=== PATIENT | female | born 2000 | race Caucasian/White ===

== ENCOUNTER 2019-02-09 19:05 | Emergency (ER) | payer OTHER, MEDICAID, SELFPAY ==
[2019-02-09 19:29] VITALS: BP 119/74; PULSE 77; RESP 14; TEMP 36.4; O2SAT 100
--- NOTE | 2019-02-09 22:13 | DI.US.S_ITS ---
PROCEDURE: US PELVIC COMPLETE INDICATIONS: RIGHT ADNEXAL PAIN TECHNIQUE: Real-time scanning was performed of the pelvic organs, with image documentation. Additional endovaginal scanning was necessary due to incomplete visualization of the adnexal and endometrial structures by transabdominal scanning. COMPARISON: [facility], , PELVIC COMPLETE, 02/03/2017, 22:06. FINDINGS: Transabdominal scanning: Limited scanning through the kidneys shows no hydronephrosis. No pathologic free abdominal or pelvic fluid. Endovaginal scanning: Uterus: Uterus is normal in size at 6.9 x 4.2 x 5.8 cm. The endometrium measures 12.4 mm in combined thickness. Ovaries: Ovaries are normal in size 4.0 x 2.7 years on the right and 2.8 x 2.1 x 2.5 cm on the left. Multiple bilateral follicular cyst, largest on the right measuring 2.6 cm. IMPRESSION: Dominant right follicular cyst measuring 2.6 cm. Dictated by: Jesus DOZIER Interpreted: Constantino Christensen MD on 02/10/2019 at 8:21 Approved by: Constantino Christensen M.D. on 02/10/2019 at 10:34
--- NOTE | 2019-02-09 22:13 | ED_ITS ---
HPI - Abdominal Pain General Chief Complaint: Abdominal Pain Stated Complaint: OVARIE PAIN Time Seen by Provider: 02/09/19 22:07 Source: patient Mode of arrival: ambulatory Limitations: no limitations History of Present Illness HPI narrative: Patient is a 18-year-old female here with her boyfriend for concerns of abdominal pain and concerns of . Patient states she has had abdominal pain for the past several weeks. Her boyfriend states that the patient has been constipated in the past. However did have a bowel movement today. Patient denies any urinary symptoms or vaginal bleeding. Has not tried anything for symptoms prior to arrival. Related Data Previous Rx's Medication Instructions Recorded bupropion HCl [Wellbutrin SR] 100 mg PO BID #60 tab 03/13/17 Allergies Allergy/AdvReac Type Severity Reaction Status Date / Time shellfish derived Allergy Unknown EYES Verified 02/09/19 19:32 [SHELLFISH DERIVED] SWELL, FACE ITCHES Review of Systems Constitutional Denies fever(s) and Denies headache(s) ENT Ears, Nose, Mouth, and Throat: Denies headache(s) Cardiovascular Denies chest pain and Denies dyspnea Respiratory Denies dyspnea Gastrointestinal Gastrointestinal: Reports abdominal pain, Reports constipation, Denies nausea and Denies vomiting Genitourinary Denies dysuria and Denies vaginal discharge Musculoskeletal Denies myalgias and Denies arthralgias Integumentary/Breasts Denies rash Neurologic Denies headache(s) FOR[facility]LY [facility] Medical History Healthy adult (Acute) Surgical History History of third molar tooth extraction Family History Brother Age: 23 Mental health problem Mother Age: 42 Broken foot ADHD (attention deficit hyperactivity disorder) Social History Smoking Status: Never smoker Family History Brother Age: 23 Mental health problem Mother Age: 42 Broken foot ADHD (attention deficit hyperactivity disorder) Social History Smoking Status: Never smoker Exam Initial Vital Signs Initial Vital Signs: Vital Signs Temperature 97.6 F 02/09/19 19:29 Pulse Rate 77 02/09/19 19:29 Respiratory Rate 14 02/09/19 19:29 Blood Pressure 119/74 02/09/19 19:29 Pulse Oximetry 100 02/09/19 19:29 Const General: cooperative, healthy appearing, comfortable, well developed, well groomed and No acute distress Orientation: alert, awake and oriented x3 HENMT Head: normal to inspection and normocephalic Resp Effort & Inspection: normal respiratory effort Auscultation: clear to auscultation bilaterally Cardio Rate: regular rate Rhythm: regular rhythm GI Inspection: non-distended Palpation: soft, No firm and No tender Skin Lesions: no lesions Rashes: no rashes Neuro General: alert, awake and oriented x3 Speech: speech normal Extrem General: normal to inspection and capillary refill normal Course Orders Ordered: ED Orders 02/09/19 22:13 US pelvic complete Stat Vital Signs - 8 hr 02/09/19 19:29 02/10/19 00:21 Temperature 97.6 F Pulse Rate 77 65 Respiratory Rate 14 14 Blood Pressure 119/74 127/76 Pulse Oximetry 100 98 MDM - Abdominal Pain Lab Data Attestation: I reviewed the patient's lab results. Point of care testing: Point of Care Testing Test Results Negative Urine Dip Bedside Urine Glucose Negative Bedside Urine Bilirubin - Negative Bedside Urine Ketone - Negative Urine Specific [place] 1.025 Bedside Urine Occult Blood - Negative Bedside Urine pH 6.5 Bedside Urine Protein - Negative Bedside Urine Urobilinogen - Negative Bedside Urine Nitrite - Negative Bedside Urine Leukocytes - Negative Esterase MDM Narrative Medical decision making narrative: test negative however the patient expressed some concern about the validity of this stating that when her mother was with her brother the urine test rate never positive and they needed a blood test patient has a benign abdominal exam. I do suspect that this secondary to the constipation. Will hold on CT scan for now. I discussed all this with the patient and her boyfriend. We did discuss increasing her fiber intake. Discussed return precautions. They expressed understanding and agreement with plan. Discharge Plan Departure Patient Disposition: Home Clinical Impression: Cyst of right ovary Discharge Date/Time: 02/10/19 00:21 Interventions: ED Discharge Assessment Last Done: 02/10/19 00:21 Instructions: DI for Ovarian Cyst Activity Restrictions/Additional Instructions: Recommend that you take Tylenol/ibuprofen for any discomfort. Contact your primary provider or superintendent geophysical laboratory provider to discuss the indications for control to control the cysts. Return to the emergency department for any new or worsening symptoms Prescriptions: No Action bupropion HCl [Wellbutrin SR] 100 MG tablet extended release 12 hr 100 mg PO BID Qty: 60 RF: 0 Referrals: Alicia Gee ND [Primary Care Provider] -
[2019-02-10 00:21] VITALS: BP 127/76; PULSE 65; RESP 14; O2SAT 98
== END 2019-02-10 00:21 | disposition home or self-care (01) ==
PROVIDERS: Emergency Provider Emergency Medicine; Family Provider Family Medicine; PCP Naturopath
DX: N83.201 Unspecified ovarian cyst, right side (principal)
CPT/HCPCS: 76830; 76856; 81003; 81025; 99282; 99283

== ENCOUNTER → 2019-07-02 18:27 | Outpatient (CLI) | payer OTHER, MEDICAID, SELFPAY ==
[2019-07-02 21:36] LABS: Urine N gonorrhoeae NOT DETECTED
[2019-07-02 22:42] LABS: Urine Chlamydia NOT DETECTED
== END ==
PROVIDERS: Family Provider Family Medicine; PCP Naturopath; Visit Provider Physician Assistant
DX: R10.30 Lower abdominal pain, unspecified (principal)
CPT/HCPCS: 87210; 87491; 87591

== ENCOUNTER 2019-10-25 17:18 | Emergency (ER) | payer OTHER, MEDICAID, SELFPAY ==
[2019-10-25 17:25] VITALS: BP 112/77; PULSE 116; RESP 20; TEMP 37.3; O2SAT 97; BMI 21.2
[2019-10-25 18:05] LABS: Influenza A - CEPHEID Flu A NEGATIVE (NEGATIVE); Influenza B - CEPHEID Flu B POSITIVE (NEGATIVE)
--- NOTE | 2019-10-25 18:44 | ED.URI ---
HPI - URI/Sore Throat General Chief Complaint: Upper Respiratory Symptoms Stated Complaint: weak feeling/diarrhea/ rt breast pain Time Seen by Provider: 10/25/19 18:44 Source: patient Mode of arrival: Ambulatory Limitations: no limitations History of Present Illness HPI Narrative: [age] year old female comes to the emergency department with fevers starting last . Patient states that she has had just feeling weak. Not really much nasal congestion or cough. She denies any chest pain other than a little bit discomfort in her right breast and a little bit of a duct that feels full. She states she is still breast-feeding her 2-year-old and states that she has not had any changes with milk or blood but has appreciated that it is painful when she uses the nipple and expresses milk. She has felt slightly nauseated. She has had loose stools. She has not had any urinary symptoms. She has not had any rashes or skin changes. Patient states she has not appreciated any redness or skin changes to the breast. She states she has had mastitis in the past and this feels different. She denies any other medical issues currently. No prior surgeries. No allergies. Related Data Home Medications Medication Instructions Recorded Confirmed escitalopram oxalate 5 mg tablet 5 mg PO DAILY 07/02/19 07/02/19 propranolol 20 mg tablet 10 mg PO ONCE PRN tab 07/02/19 07/02/19 Previous Rx's Medication Instructions Recorded bupropion HCl [Wellbutrin SR] 100 mg PO BID #60 tab 03/13/17 ondansetron HCl [Zofran] 4 mg PO Q6H PRN #7 tab 10/25/19 Allergies Allergy/AdvReac Type Severity Reaction Status Date / Time shellfish derived Allergy Unknown EYES Verified 07/02/19 16:53 [SHELLFISH DERIVED] SWELL, FACE ITCHES Review of Systems Review of Systems ROS Unobtainable: All systems reviewed & are unremarkable except as noted in HPI and below Patient History Medical History Healthy adult (Acute) Surgical History History of third molar tooth extraction Family History (Updated 02/24/17 @ 00:00 by Conversion Provider) Brother Age: 24 Mental health problem Mother Age: 43 Broken foot ADHD (attention deficit hyperactivity disorder) Social History Smoking Status: Never smoker Smoking Status: Never smoker alcohol intake frequency: 0-2 drinks per day Substance Use Type: marijuana Exam Narrative Exam Narrative: GEN: well nourished, well appearing male, alert and oriented x 3, patient appears to be in mild distress. HEENT: Atraumatic, pupils are equal round reactive to light, extraocular movements are intact, nares are clear, TMs are clear with no fluid, there is no conjunctival pallor. Throat is clear without any exudates, erythema, tonsillar enlargement or uvular deviation HEART: Regular rate and rhythm without murmur, clicks, rubs. Patient's right breast has a small nodule that feels consistent with plugged duct and is mildly tender, no fluctuance, no redness. LUNGS:Lungs clear to auscultation, no wheezes, rales, crackles, chest moves symmetrically ABD:bowel sounds normal, soft, non-tender, no guarding, rebound, rigidity, no masses noted, no hepatosplenomegaly :No CVA tenderness. MSCL: Non-tender, no muscle atrophy, muscles strength 5/5 upper and lower extremities, full range of motion, normal gait NEURO:CN 2-12 intact, sensation normal. SKIN: No rash, no erythema or skin changes. Initial Vital Signs Initial Vital Signs: Vital Signs Temperature 99.2 F 10/25/19 17:25 Pulse Rate 116 H 10/25/19 17:25 Respiratory Rate 20 10/25/19 17:25 Blood Pressure 112/77 10/25/19 17:25 Pulse Oximetry 97 10/25/19 17:25 Course Orders Ordered: ED Orders 10/25/19 17:28 Flu test [Influenza A & B (PCR)] Stat Vital Signs Vital signs: Vital Signs - 8 hr 10/25/19 17:25 Temperature 99.2 F Pulse Rate 116 H Respiratory Rate 20 Blood Pressure 112/77 Pulse Oximetry 97 MDM - URI/Sore Throat Lab Data Attestation: I reviewed the patient's lab results. Labs: Lab Results 10/25/19 Range/Units 17:28 Influenza A (RT-PCR) Flu a negative (NEGATIVE) Influenza B (RT-PCR) Flu b positive H (NEGATIVE) MDM Narrative Medical decision making narrative: Discussed with patient she is flu positive, patient may also have a plugged duct, does not appear that she has a mastitis. We discussed treatment for the plug stuck inside symptoms to watch for for potential mastitis. She has had the past and states this does feel different. She is far outside the window for Tamiflu. Patient I discussed symptomatic care and reasons to return emergently. Discharge Plan Departure Patient Disposition: Home Clinical Impression: Influenza B Discharge Date/Time: 10/25/19 19:15 Instructions: Influenza Activity Restrictions/Additional Instructions: Follow up with your primary care physician in the next 3-5 days. Continue ibuprofen and/or Tylenol as needed for pain You may have a plugged duct, use heat to the affected area, massage, continue to breast feed regularly. May take Zofran 1 tablet every 6 hours as needed for nausea/vomiting. You may also take Imodium as needed for diarrhea. Return to the ER for new redness, increasing pain of your breast, persistent vomiting, new chest pain, shortness of breath, black or bloody stools, passing out, or other new or concerning symptoms. Prescriptions: New ondansetron HCl [Zofran] 4 mg tablet 4 mg PO Q6H PRN (Reason: nausea and vomiting) Qty: 7 RF: 0 No Action propranolol 20 mg tablet 10 mg PO ONCE PRNRF: 0 escitalopram oxalate 5 mg tablet 5 mg PO DAILY RF: 0 bupropion HCl [Wellbutrin SR] 100 MG tablet extended release 12 hr 100 mg PO BID Qty: 60 RF: 0 Referrals: Alicia Gee ND [Primary Care Provider] -
[2019-10-25 19:14] VITALS: BP 124/73; PULSE 93; RESP 20; O2SAT 97
== END 2019-10-25 19:15 | disposition home or self-care (01) ==
PROVIDERS: Emergency Medicine; Emergency Provider Emergency Medicine; PCP Naturopath
DX: J10.1 Influenza due to other identified influenza virus with other respiratory manifestations (principal)
CPT/HCPCS: 87502; 99282

== ENCOUNTER 2020-06-23 10:05 | Outpatient (CLI) | payer OTHER, MEDICAID, SELFPAY ==
--- NOTE | 2020-06-23 11:53 | P.TNLD_ITS ---
Visit Information Visit Information Date of evaluation: 06/23/20 Primary OB Provider: Ladonna Kramer On-call OB Provider: Sharifa Sal Reason for Evaluation: Yes pre-term labor Comments/Additional reasons for admission: Patient is a 20-year-old at 30 weeks and 5 days who receives care from Vy Kramer CNM. Patient fell 2 days ago but did not seek care. Today she had some contractions and called her nature photographer who advised that she come in to be checked for labor. She also has felt some fluid at times concerning for rupture membranes. Reports good movement and denies vaginal bleeding. No history of labor. Vital Signs Vital Signs: Temperature 36.3? blood pressure 105/57 heart rate 75 PFSH Medical History (Updated 06/23/20 @ 11:57 by Sharifa Sal DO) Healthy adult (Acute) Surgical History History of third molar tooth extraction Family History (Updated 02/24/17 @ 00:00 by Conversion Provider) Brother Age: 25 Mental health problem Mother Age: 44 Broken foot ADHD (attention deficit hyperactivity disorder) Social History Smoking Status: Never smoker Evaluation Evaluation Baseline heart rate: 140 Variability: Moderate (11-25) monitor accelerations: Present monitor decelerations: Absent Category of Tracing: Reactive Cervical dilation (cm): 1 Cervical effacement (%): 50 station: -4 Non-invasive Membranes Rupture Test: negative Diagnosis, Plan/Disposition Final Diagnosis (1) 30 weeks gestation of : Status: Acute Plan/Disposition Plan: Patient is a 20-year-old at 30 weeks and 5 days gestation who fell 2 days ago. She was feeling some contractions this morning and was advised to come to the center. center RN spoke with her nature photographer who reportedly requested a cervical exam and AmniSure. Cervical exam was 1/50/high and posterior. AmniSure was negative. fibronectin cannot be collected after vaginal exams with gel. Patient initially had a few contractions on the monitor however these resolved without intervention, low suspicion for labor. Patient denied feeling contractions after monitoring in the center and was eager to return home. She will follow-up as scheduled with her nature photographer. Return precautions given. OB Disposition: home
== END 2020-06-23 12:06 | disposition home or self-care (01) ==
LOC: LABOR 12:06 → OB 06-24 11:41
PROVIDERS: PCP Nurse Practitioner Family; Referring Provider Specialist; Visit Provider Specialist
DX: O47.03 False labor before 37 completed weeks of gestation, third trimester (principal); N89.8 Other specified noninflammatory disorders of vagina; Z3A.30 30 weeks gestation of pregnancy
CPT/HCPCS: 59025; 59050; 84112; G0378; G0379

== ENCOUNTER 2020-07-28 11:56 | Emergency (ER) | payer OTHER, MEDICAID, SELFPAY ==
[2020-07-28 12:03] VITALS: BP 123/65; PULSE 83; O2SAT 99
[2020-07-28 12:07] VITALS: BP 123/65; PULSE 83; RESP 12; TEMP 36.8; O2SAT 100; BMI 31.1
--- NOTE | 2020-07-28 12:25 | ED_ITS ---
HPI - Chest Pain General Chief Complaint: Chest Pain Stated Complaint: PER PHYS/ FAXED OVER BLOOD WORK Time Seen by Provider: 07/28/20 12:10 Source: patient Mode of arrival: Ambulatory Limitations: no limitations History of Present Illness HPI narrative: Patient is a 20-year-old female who is currently 35 weeks preg nant presenting with left-sided chest pain ongoing for 5 days. She was sent here by the post anesthesia room nurse who was concerned about a gallbladder problem. It hurts on the left side every time she moves or breathes and radiate up into her neck. She was thinking that it was acid reflux and taking antacid medicine she is burping a little bit more. She states she is having some increasing shortness of breath with exertion but only because it hurts when she breathes. She has no abdominal pain no vaginal bleeding. She has been nauseated throughout the but no vomiting she has no vaginal bleeding. She denies any injury. She says she noticed it when she rolled over in bed 1 night and it has hurt ever since. She feels like this is worse and much different than other pain she has had. She has taken Tylenol without any relief. She denies any fever no cough. MD complaint: chest pain Onset (ago): day(s) (5) Duration: constant Onset: awoke with symptoms Quality: sharp Relieving factors: nothing Exacerbating factors: palpation and movement Related Data Home Medications Medication Instructions Recorded Confirmed escitalopram oxalate 5 mg tablet 5 mg PO DAILY 07/02/19 07/02/19 propranolol 20 mg tablet 10 mg PO ONCE PRN tab 07/02/19 07/02/19 Previous Rx's Medication Instructions Recorded bupropion HCl [Wellbutrin SR] 100 mg PO BID #60 tab 03/13/17 ondansetron HCl [Zofran] 4 mg PO Q6H PRN #7 tab 10/25/19 Allergies Allergy/AdvReac Type Severity Reaction Status Date / Time shellfish derived Allergy Unknown EYES Verified 07/28/20 12:11 [SHELLFISH DERIVED] SWELL, FACE ITCHES Review of Systems Review of Systems Narrative: GENERAL: Denies chills, fatigue, malaise, fever, sweats, travel HEENT: Denies sinus pain, ear pain, sore throat, difficulty swallowing, neck pain RESPIRATORY: Denies dyspnea, cough, wheezing, hemoptysis, sputum. CARDIOVASCULAR: See HPI GASTROINTESTINAL: Denies nausea, vomiting, abdominal pain, diarrhea, constipation, melena. : Denies dysuria, frequency, incontinence, hematuria, urinary retention, flank pain. MUSCULOSKELETAL: Denies weakness, joint pain, or bony pain SKIN: No rash, no erythema, no pruritus NEUROLOGIC: Denies weakness, dizziness, headache, numbness, change in speech, confusion PSYCHIATRIC: No concerning psychosocial issues. 12 point review of systems is negative except for those stated above and HPI Patient History Medical History Healthy adult (Acute) Surgical History History of third molar tooth extraction Family History Brother Age: 25 Mental health problem Mother Age: 44 Broken foot ADHD (attention deficit hyperactivity disorder) Social History Smoking Status: Never smoker Smoking Status: Never smoker alcohol intake frequency: 0-2 drinks per day Substance Use Type: marijuana Exam Initial Vital Signs Initial Vital Signs: Vital Signs Pulse Rate 83 07/28/20 12:03 Blood Pressure 123/65 07/28/20 12:03 Pulse Oximetry 99 07/28/20 12:03 GENERAL: Well-appearing, well-nourished and in no acute distress. HEENT: Head atraumatic,EOMI, pupils reactive, face symmetric, moist mucous membranes CARDIOVASCULAR: Regular rate and rhythm without murmurs, rubs or gallops. Tender all left lateral ribs about rib 6 pain is reproducible with palpation no bruising RESPIRATORY: Breath sounds equal bilaterally, no wheezes rales or rhonchi. ABDOMEN: Gravid abdomen nontender no epigastric pain no right upper quadrant pain EXTREMITIES: Normal range of motion, no clubbing or edema. Neurovascularly intact NEUROLOGICAL: Alert and oriented x4.Normal gait and speech. Cranial nerves II through XII grossly intact. SKIN: Warm, dry, no laceration, no petechiae, no rashes or lesions. Scores ABCD2 Citation: Lancet. 2006Dec 14;369(3022):283-92. Validation and refinement of scores to predict very early stroke risk after transient ischaemic attack. Tonya SC1, Selena PM, Teresa MN, Eddie MF, Penelope JS, Ramya AL, Juve S. Course Orders Ordered: ED Orders 07/28/20 12:13 EKG-12 Lead Stat 07/28/20 12:52 Basic Metabolic Panel Stat Complete Blood Count AUTO DIFF Stat Discontinued Medications Acetaminophen (Tylenol) 650 mg PO NOW ONE Stop: 07/28/20 12:38 Last Admin: 07/28/20 12:45 Dose: 650 mg Documented by: ASHVIN Vital Signs Vital signs: Vital Signs - 8 hr 07/28/20 12:03 07/28/20 12:07 07/28/20 12:30 Temperature 98.3 F Pulse Rate 83 83 81 Respiratory Rate 12 24 Blood Pressure 123/65 123/65 129/72 Pulse Oximetry 99 100 96 07/28/20 13:00 07/28/20 13:30 Temperature Pulse Rate 81 79 Respiratory Rate 21 22 Blood Pressure 118/68 111/61 Pulse Oximetry 98 MDM - Chest Pain Lab Data Attestation: I reviewed the patient's lab results. Result diagrams: 07/28/20 12:52 07/28/20 12:52 Labs: Lab Results 07/28/20 07/28/20 Range/Units 12:52 12:52 WBC 10.2 (4.5-11.0) X10^3/uL RBC 3.94 L (4.0-5.2) X10^6/uL Hgb 11.3 L (12.0-16.0) g/dL Hct 34.1 L (36-46) % MCV 86.5 (80-100) fL MCH 28.8 (26-34) PG MCHC 33.3 (30-36) % RDW 12.7 (11.6-14.8) % Plt Count 131 L (150-400) X10^3/uL Neut % (Auto) 76.8 H (50-75) % Lymph % (Auto) 16.4 L (25-40) % Powell % (Auto) 5.8 (3-14) % Eos % (Auto) 0.5 L (2-4) % Baso % (Auto) 0.5 (0-2) % Neut # (Auto) 7800 H (7444-6224) /uL Lymph # (Auto) 1700 (8912-9405) /uL Powell # (Auto) 600 (0-900) /uL Eos # (Auto) 100 (0-450) /uL Baso # (Auto) 100 (0-100) /uL Sodium 134 L (137-145) mmol/L Potassium 3.9 (3.4-5.1) mmol/L Chloride 105 (98-107) mmol/L Carbon Dioxide 24 (22-32) mmol/L BUN 8 (7-17) mg/dL Creatinine 0.45 L (0.52-1.04) mg/dL Estimated GFR > 60.0 (>60) mL/min BUN/Creatinine Ratio 17.8 (6-22) Glucose 70 (70-100) mg/dL Calcium 8.7 (8.4-10.2) mg/dL ECG Data Attestation: I personally reviewed and interpreted this ECG as follows: Prior ECG tracings: not available for review Interpretation: Normal sinus rhythm rate 76 p.r. interval 118 QRS 93 QTC 401 no ischemic changes MDM Narrative Medical decision making narrative: Patient's pain is reproducible to touch and worse with movement. This seems to be musculoskeletal in nature. She has had no injury she denies any cough at this time I do not think that she needs an x- ray or to expose herself to radiation. She had Tylenol without much relief. Blood work is reassuring however troponin is not checked because it does not seem cardiac in nature. EKG does not show any is any changes. She is only short of breath because it hurts to take a deep breath which again imply musculoskeletal. She has no abdominal pain no right-sided pain no epigastric pain she is not persistently vomiting. Recommend she follow up as outpatient I discussed all findings with the patient , Education has been performed regarding treatment plan, diagnosis, warning signs and symptoms and all concerns have been addressed. Verbally agree with and understood all of the above. Discharge Plan Departure Patient Disposition: Home Clinical Impression: Acute costochondritis Discharge Date/Time: 07/28/20 14:02 Instructions: Costochondritis Activity Restrictions/Additional Instructions: *You have been diagnosed with costochondritis *What to do: At this time your blood work is overall reassuring and EKG. This seems to be musculoskeletal and a sprain in your ribs. I recommend heating pad or ice pack. You may take Tylenol if needed for pain. *Continue to take medications as directed *Follow up with your primary care provider in 2-3 days *Return to ER if you should have increasing pain, shortness of breath, fever, cough or any new, worsening or concerning symptoms Prescriptions: No Action propranolol 20 mg tablet 10 mg PO ONCE PRNRF: 0 escitalopram oxalate 5 mg tablet 5 mg PO DAILY RF: 0 bupropion HCl [Wellbutrin SR] 100 MG tablet extended release 12 hr 100 mg PO BID Qty: 60 RF: 0 ondansetron HCl [Zofran] 4 mg tablet 4 mg PO Q6H PRN (Reason: nausea and vomiting) Qty: 7 RF: 0 Referrals: Keely Tsai [Primary Care Provider] -
[2020-07-28 12:30] VITALS: BP 129/72; PULSE 81; RESP 24; O2SAT 96
[2020-07-28] MEDS: ACETAMINOPHEN 325 MG TABLET 650 MG PO (12:45)
[2020-07-28 12:59] LABS: Add Manual Diff / Slide Review NO; Basophils Absolute Auto 100 /uL (0-100); Basophils Percent Auto 0.5 % (0-2); Eosinophils Absolute Auto 100 /uL (0-450); Eosinophils Percent Auto 0.5 % (2-4); Hematocrit 34.1 % (36-46); Hemoglobin 11.3 g/dL (12.0-16.0); Lymphocytes Absolute Auto 1700 /uL (1100-4500); Lymphocytes Percent Auto 16.4 % (25-40); Mean Corpuscular HGB Conc 33.3 % (30-36); Mean Corpuscular Hemoglobin 28.8 PG (26-34); Mean Corpuscular Volume 86.5 fL (80-100); Monocytes Absolute Auto 600 /uL (0-900); Monocytes Percent Auto 5.8 % (3-14); Neutrophils Absolute Auto 7800 /uL (1500-7000); Neutrophils Percent Auto 76.8 % (50-75); Platelet Count 131 X10^3/uL (150-400); Red Blood Cell Count 3.94 X10^6/uL (4.0-5.2); Red Cell Distribution Width 12.7 % (11.6-14.8); White Blood Cell Count 10.2 X10^3/uL (4.5-11.0)
[2020-07-28 13:00] VITALS: BP 118/68; PULSE 81; RESP 21
[2020-07-28 13:13] LABS: BUN Creatinine Ratio 17.8 (6-22); Blood Urea Nitrogen 8 mg/dL (7-17); Calcium 8.7 mg/dL (8.4-10.2); Carbon Dioxide 24 mmol/L (22-32); Chloride 105 mmol/L (98-107); Estimated Glomerular Filt Rate > 60.0 mL/min (>60); Glucose 70 mg/dL (70-100); HEMOLYSIS < 15 (0-50); Potassium 3.9 mmol/L (3.4-5.1); Sodium 134 mmol/L (137-145)
[2020-07-28 13:30] VITALS: BP 111/61; PULSE 79; RESP 22; O2SAT 98
== END 2020-07-28 14:02 | disposition home or self-care (01) ==
PROVIDERS: Emergency Provider Emergency Medicine; PCP Nurse Practitioner Family
DX: M94.0 Chondrocostal junction syndrome [Tietze] (principal); R06.02 Shortness of breath
CPT/HCPCS: 36415; 80048; 85025; 93005; 99284

== ENCOUNTER 2022-06-16 12:49 | Emergency (ER) | payer OTHER, MEDICAID, SELFPAY ==
[2022-06-16 12:58] VITALS: BP 133/69; PULSE 79; RESP 18; TEMP 36.8; O2SAT 98; BMI 24.7
[2022-06-16 13:56] LABS: Add Manual Diff / Slide Review NO; Basophils Absolute Auto 100 /uL (0-100); Basophils Percent Auto 0.8 % (0-2); Eosinophils Absolute Auto 100 /uL (0-450); Eosinophils Percent Auto 0.8 % (2-4); Hematocrit 33.1 % (36-46); Hemoglobin 11.3 g/dL (12.0-16.0); Lymphocytes Absolute Auto 1300 /uL (1100-4500); Lymphocytes Percent Auto 18.9 % (25-40); Mean Corpuscular HGB Conc 34.3 % (30-36); Mean Corpuscular Volume 87.6 fL (80-100); Monocytes Absolute Auto 600 /uL (0-900); Monocytes Percent Auto 8.4 % (3-14); Neutrophils Absolute Auto 5000 /uL (1500-7000); Neutrophils Percent Auto 71.1 % (50-75); Platelet Count 152 X10^3/uL (150-400); Red Blood Cell Count 3.77 X10^6/uL (4.0-5.2); Red Cell Distribution Width 14.2 % (11.6-14.8); White Blood Cell Count 7.1 X10^3/uL (4.5-11.0)
[2022-06-16 14:03] LABS: Pregnancy Test Serum,Qual Positive (Negative)
[2022-06-16 14:04] LABS: Alanine Aminotransferase 13 IU/L (<35); Albumin 3.6 g/dL (3.5-5.0); Albumin Globulin Ratio 1.3 (1.0-2.8); Alkaline Phosphatase 53 U/L (38-126); Aspartate Aminotransferase 23 IU/L (14-36); BUN Creatinine Ratio 22.4 (6-22); Bilirubin Total 0.3 mg/dL (0.2-1.3); Blood Urea Nitrogen 11 mg/dL (7-17); Calcium 8.4 mg/dL (8.4-10.2); Carbon Dioxide 22 mmol/L (22-32); Chloride 107 mmol/L (98-107); Estimated Glomerular Filt Rate > 60 mL/min (>60); Ethanol (ETOH) < 10 mg/dL; Globulin 2.7 g/dL (1.7-4.1); Glucose 66 mg/dL (70-100); HEMOLYSIS < 15 (0-50); Potassium 3.7 mmol/L (3.4-5.1); Sodium 136 mmol/L (137-145); Total Protein 6.3 g/dL (6.3-8.2)
[2022-06-16 15:24] LABS: Appearance Urine UA CLEAR; Bilirubin Urine UA NEGATIVE (NEGATIVE); Color Urine UA YELLOW; Glucose Urine UA NEGATIVE (Negative); Ketones Urine UA 3+ (NEGATIVE); Leukocyte Esterase Urine UA NEGATIVE (NEGATIVE); Nitrite Urine UA NEGATIVE (Negative); Occult Blood Urine UA NEGATIVE (Negative); Protein Urine UA NEGATIVE (Negative); Specific Gravity Urine UA 1.025 (1.000-1.035); Urobilinogen Urine UA 0.2 E.U./dL (0.2)
[2022-06-16 15:26] LABS: UR Morphine/Opiate cutoff 300 Negative (Negative); Ur Creatinine Normal (Normal); Ur Specific Gravity Normal (Normal); Urine Amphetamines Negative (Negative); Urine Barbiturates Negative (Negative); Urine Benzodiazepines Negative (Negative); Urine Cocaine Negative (Negative); Urine MDMA Negative (Negative); Urine Methadone Negative (Negative); Urine Methamphetamines Negative (Negative); Urine Oxycodone Negative (Negative); Urine Phencyclidine Negative (Negative); Urine Tetrahydrocannabinol Negative (Negative); Urine Tricyclic Antidepressant Negative (Negative); Urine pH Normal (Normal)
[2022-06-16 15:33] LABS: Amorphous Sediment Urine 1+; Bacteria Urine Few (2-10); Culture Indicated Urine Specimen Cultured; Mucus Urine 1+ (Negative); RBC Urine None Seen (0-5/HPF); Squamous Epithelial Cell Urine 1-5 /HPF (0-5/HPF); WBC Urine 1-5/HPF (0-5/HPF); pH Urine UA 5.5 (4.5-8.0)
--- NOTE | 2022-06-16 16:19 | ED.PSYCH ---
HPI - Psych General Chief Complaint: Psychiatric Symptoms Stated Complaint: SI Time Seen by Provider: 06/16/22 16:14 Source: patient Mode of arrival: EMS Limitations: no limitations History of Present Illness HPI Narrative: female with history of ADHD, 21 weeks who is currently following with a hide and skin classer at [facility]. Patient states she is presents today with thoughts of harming herself, suicidal ideation she states her plan would be to drive her car into a tree. She does not have intent she does not really want to hurt herself but feels like the thoughts have been somewhat intrusive. She states her has been somewhat stressful was unexpected, it is wanted for her but for her significant other was not felt to be so and this has been causing some conflict in the relationship. She states in the last week they have been having conflict or fights and she feel like he has not been very sensitive her feelings. She feels safe she states he has not been physically harming her in any way. Patient states she has strong resources with family but is not in touch with a therapist or psychiatrist. Remotely in her teens she did cut herself. She has not done this in many years until last week she does have a hide and skin classer she is following with they are having her hold her ADHD medications except on day she is working which she finds is probably worsening her symptoms as well. She states the has been a little bit more challenging she is been more nauseated but not having any complications with her . She also notes that her hide and skin classer service is shutting down she has not received a formal letter but will have to find new care to establish. She does have a primary care physician she follows with Dr. Tsai. Patient denies any thoughts of harming others. No hallucinations. Related Data Home Medications Medication Instructions Recorded Confirmed escitalopram oxalate 5 mg tablet 5 mg PO DAILY 07/02/19 07/02/19 propranolol 20 mg tablet 10 mg PO ONCE PRN 07/02/19 07/02/19 Previous Rx's Medication Instructions Recorded bupropion HCl 100 mg tablet,12 hr 100 mg PO BID #60 tabs 03/13/17 sustained-release (Wellbutrin SR) ondansetron HCl 4 mg tablet 4 mg PO Q6H PRN nausea and 10/25/19 (Zofran) vomiting #7 tabs Allergies Allergy/AdvReac Type Severity Reaction Status Date / Time shellfish derived Allergy Unknown EYES Verified 07/28/20 12:11 [SHELLFISH DERIVED] SWELL, FACE ITCHES lactose Allergy Verified 06/16/22 12:58 Review of Systems Review of Systems ROS Unobtainable: All systems reviewed & are unremarkable except as noted in HPI and below Patient History Medical History Healthy adult Surgical History History of third molar tooth extraction Family History Brother Age: 27 Mental health problem Mother Age: 46 Broken foot ADHD (attention deficit hyperactivity disorder) Social History Smoking Status: Never smoker Smoking Status: Never smoker alcohol intake frequency: 0-2 drinks per day Substance Use Type: marijuana Exam Narrative Exam Narrative: GENERAL: Alert and oriented x three, female in mild distress HEENT: Head normocephalic, atraumatic, EOMI, pupils reactive, face symmetric, moist mucous membranes NECK: Supple, full range of motion CARDIOVASCULAR: Regular rate and rhythm without murmurs, rubs or gallops. RESPIRATORY: Breath sounds equal bilaterally, no wheezes rales or rhonchi. ABDOMEN: Soft, nontender. Normoactive bowel sounds all 4 quadrants. No guarding or rebound, rigidity, no mass : No CVA tenderness EXTREMITIES: Normal range of motion, no clubbing or edema. Neurovascularly intact NEUROLOGICAL: Cranial nerves II through XII grossly intact. Moving all extremities SKIN: Warm, dry, no petechiae, no rashes or lesions. PSYCH: suicidal thoughts, no intent, no hallucinations, no homicidal thoughts. Initial Vital Signs Initial Vital Signs: Vital Signs Temperature 98.2 F 06/16/22 12:58 Pulse Rate 79 06/16/22 12:58 Respiratory Rate 18 06/16/22 12:58 Blood Pressure 133/69 06/16/22 12:58 Pulse Oximetry 98 06/16/22 12:58 Oxygen Delivery Method 06/16/22 12:58 Course Orders Ordered: ED Orders 06/16/22 13:04 EKG-12 Lead Stat 06/16/22 13:05 Consult to HEAD TEACHER - [facility] [employer] Urgent 06/16/22 13:33 Complete Blood Count AUTO DIFF Stat Comprehensive Metabolic Panel Stat Ethanol (ETOH) Stat Test Serum,Qual Stat 06/16/22 14:40 Urinalysis and Microscopic Stat Urine Culture Stat Urine Drug Screen, Rapid Stat Vital Signs Vital signs: Vital Signs - 8 hr 06/16/22 12:58 06/16/22 17:46 Temperature 98.2 F Pulse Rate 79 80 Respiratory Rate 18 18 Blood Pressure 133/69 116/61 Pulse Oximetry 98 100 Oxygen Delivery Method Room Air Room Air MDM - Psych Lab Data Result diagrams: 06/16/22 13:33 06/16/22 13:33 Labs: Lab Results 06/16/22 06/16/22 06/16/22 Range/Units 13:33 13:33 13:33 WBC 7.1 (4.5-11.0) X10^3/uL RBC 3.77 L (4.0-5.2) X10^6/uL Hgb 11.3 L (12.0-16.0) g/dL Hct 33.1 L (36-46) % MCV 87.6 (80-100) fL MCH 30.0 (26-34) PG MCHC 34.3 (30-36) % RDW 14.2 (11.6-14.8) % Plt Count 152 (150-400) X10^3/uL Neut % (Auto) 71.1 (50-75) % Lymph % (Auto) 18.9 L (25-40) % [place] % (Auto) 8.4 (3-14) % Eos % (Auto) 0.8 L (2-4) % Baso % (Auto) 0.8 (0-2) % Neut # (Auto) 5000 (4848-5232) /uL Lymph # (Auto) 1300 (7508-5521) /uL [place] # (Auto) 600 (0-900) /uL Eos # (Auto) 100 (0-450) /uL Baso # (Auto) 100 (0-100) /uL Sodium 136 L (137-145) mmol/L Potassium 3.7 (3.4-5.1) mmol/L Chloride 107 (98-107) mmol/L Carbon Dioxide 22 (22-32) mmol/L BUN 11 (7-17) mg/dL Creatinine 0.49 L (0.52-1.04) mg/dL Estimated GFR > 60 (>60) mL/min BUN/Creatinine Ratio 22.4 H (6-22) Glucose 66 L (70-100) mg/dL Calcium 8.4 (8.4-10.2) mg/dL Total Bilirubin 0.3 (0.2-1.3) mg/dL AST 23 (14-36) IU/L ALT 13 (<35) IU/L Alkaline Phosphatase 53 (38-126) U/L Total Protein 6.3 (6.3-8.2) g/dL Albumin 3.6 (3.5-5.0) g/dL Globulin 2.7 (1.7-4.1) g/dL Albumin/Globulin Ratio 1.3 (1.0-2.8) Serum , Qual Positive H (Negative) Urine Color Urine Appearance Urine pH (4.5-8.0) Ur Specific [place] (1.000-1.035) Urine Protein (Negative) Urine Glucose (UA) (Negative) g/dL Urine Ketones (NEGATIVE) Urine Occult Blood (Negative) Urine Nitrate (Negative) Urine Bilirubin (NEGATIVE) Urine Urobilinogen (0.2) E.U./dL Ur Leukocyte Esterase (NEGATIVE) Urine RBC (0-5/HPF) Urine WBC (0-5/HPF) Ur Squamous Epith Cells (0-5/HPF) Amorphous Sediment Urine Bacteria (None) Urine Mucus (Negative) Ur Culture Indicated? U Opiates 300ng/mL cut (Negative) Ur Oxycodone Screen (Negative) Urine Methadone Screen (Negative) Ur Barbiturates Screen (Negative) U Tricyclic Antidepress (Negative) Ur Phencyclidine Scrn (Negative) Ur Amphetamines Screen (Negative) U Methamphetamines Scrn (Negative) Ur MDMA Scrn (Ecstasy) (Negative) U Benzodiazepines Scrn (Negative) Urine Cocaine Screen (Negative) U Marijuana (THC) Screen (Negative) Ethyl Alcohol < 10 ( - 10) mg/dL 06/16/22 06/16/22 Range/Units 14:40 14:40 WBC (4.5-11.0) X10^3/uL RBC (4.0-5.2) X10^6/uL Hgb (12.0-16.0) g/dL Hct (36-46) % MCV (80-100) fL MCH (26-34) PG MCHC (30-36) % RDW (11.6-14.8) % Plt Count (150-400) X10^3/uL Neut % (Auto) (50-75) % Lymph % (Auto) (25-40) % [place] % (Auto) (3-14) % Eos % (Auto) (2-4) % Baso % (Auto) (0-2) % Neut # (Auto) (8895-3292) /uL Lymph # (Auto) (6234-5779) /uL [place] # (Auto) (0-900) /uL Eos # (Auto) (0-450) /uL Baso # (Auto) (0-100) /uL Sodium (137-145) mmol/L Potassium (3.4-5.1) mmol/L Chloride (98-107) mmol/L Carbon Dioxide (22-32) mmol/L BUN (7-17) mg/dL Creatinine (0.52-1.04) mg/dL Estimated GFR (>60) mL/min BUN/Creatinine Ratio (6-22) Glucose (70-100) mg/dL Calcium (8.4-10.2) mg/dL Total Bilirubin (0.2-1.3) mg/dL AST (14-36) IU/L ALT (<35) IU/L Alkaline Phosphatase (38-126) U/L Total Protein (6.3-8.2) g/dL Albumin (3.5-5.0) g/dL Globulin (1.7-4.1) g/dL Albumin/Globulin Ratio (1.0-2.8) Serum , Qual (Negative) Urine Color Yellow Urine Appearance Clear Urine pH 5.5 (4.5-8.0) Ur Specific [place] 1.025 (1.000-1.035) Urine Protein Negative (Negative) Urine Glucose (UA) Negative (Negative) g/dL Urine Ketones 3+ H (NEGATIVE) Urine Occult Blood Negative (Negative) Urine Nitrate Negative (Negative) Urine Bilirubin Negative (NEGATIVE) Urine Urobilinogen 0.2 (0.2) E.U./dL Ur Leukocyte Esterase Negative (NEGATIVE) Urine RBC None seen (0-5/HPF) Urine WBC 1-5/hpf (0-5/HPF) Ur Squamous Epith Cells 1-5 /hpf (0-5/HPF) Amorphous Sediment 1+ Urine Bacteria Few (2-10) H (None) Urine Mucus 1+ H (Negative) Ur Culture Indicated? Specimen cultured U Opiates 300ng/mL cut Negative (Negative) Ur Oxycodone Screen Negative (Negative) Urine Methadone Screen Negative (Negative) Ur Barbiturates Screen Negative (Negative) U Tricyclic Antidepress Negative (Negative) Ur Phencyclidine Scrn Negative (Negative) Ur Amphetamines Screen Negative (Negative) U Methamphetamines Scrn Negative (Negative) Ur MDMA Scrn (Ecstasy) Negative (Negative) U Benzodiazepines Scrn Negative (Negative) Urine Cocaine Screen Negative (Negative) U Marijuana (THC) Screen Negative (Negative) Ethyl Alcohol ( - 10) mg/dL ECG Data Attestation: I personally reviewed and interpreted this ECG as follows: Interpretation: Sinus rhythm rate of 73 [place] 114 QRS 80 QTC [address] No acute ST changes. MDM Narrative Medical decision making narrative: This is a 22-year-old female who is approximately 21 weeks with suicidal ideation, no intent. Patient has had thoughts or plan but does not wish to and active. After discussion patient has been having a lot of conflict in her relationship regarding her , she is also normally on ADHD medications daily but has been only taking them for work as her providers would like her to hold them when she is not working. She is not on any other daily medication she is taken things in the past but nothing for anxiety or depression currently. Patient has a primary care physician but has not been seeing a counselor or therapist or discussing these feelings with them. After discussion patient is able to contract for safety, she states she has strong family support and they were contacted today and came to her when she expressed thoughts of harming herself. She contacted the suicide hotline herself. She presents today seeking resources. She does not feel that she needs inpatient treatment at this time and after discussion I think this is appropriate for her to be followed outpatient. She is open to having the away contact her tomorrow by phone she asked that they call before noon because she is supposed to go to work. Patient I both discussed that there are medication options during that are safe and appropriate she was given referral to OBGYN if she has any issues with these being started by her primary care or hide and skin classer team. Discharge Plan Departure Patient Disposition: Home Clinical Impression: Suicidal ideation, Instructions: DI for Suicidal Ideation-Adult Activity Restrictions/Additional Instructions: Follow-up with your primary care provider as well as your hide and skin classer care team. If you are having persistent thoughts of anxiety and depression there are oral medications that are appropriate during that can be initiated and may be helpful. I also included option for care through our local resistance brazer service if your hide and skin classer team is going to be unavailable for the rest of her . [employer] or light is going to reach out to you tomorrow before noon tomorrow 06/16/22 to check in as well as discuss resources. Please make sure to answer their call or call back if you do not they can potentially initiate police contact for welfare checks. If you're feeling suicidal or having suicidal thoughts, contact the suicide hotline (this is the same resource hotline for [employer]) . Please return if you are having thoughts of harming yourself, suicide, harming others if you feel unsafe at any time or other new or concerning symptoms. Prescriptions: No Action propranolol 20 mg tablet 10 mg PO ONCE PRN escitalopram oxalate 5 mg tablet 5 mg PO DAILY bupropion HCl [Wellbutrin SR] 100 MG tablet extended release 12 hr 100 mg PO BID Qty: 60 0RF ondansetron HCl [Zofran] 4 mg tablet 4 mg PO Q6H PRN (Reason: nausea and vomiting) Qty: 7 0RF Referrals: Keely Tsai ARNP [Primary Care Provider] - Dragan Yoon MD [Physician] - Visit Report Forms: Patient Portal/API
--- NOTE | 2022-06-16 16:35 | PC.NURSE ---
pt with low BS provided with food. states she feels better. will recheck BS and continue to monitor
[2022-06-16 17:46] VITALS: BP 116/61; PULSE 80; RESP 18; O2SAT 100
--- NOTE | 2022-06-16 17:46 | PC.NURSE ---
first contact with patient is discharge. She denies any thoughts of suicide.
== END 2022-06-16 17:47 | disposition home or self-care (01) ==
PROVIDERS: Emergency Provider Emergency Medicine; PCP Nurse Practitioner Family
DX: R45.851 Suicidal ideations (principal); Z3A.21 21 weeks gestation of pregnancy
CPT/HCPCS: 36415; 80053; 80305; 80320; 81001; 84703; 85025; 87086; 93005; 99284

== ENCOUNTER 2023-12-04 14:09 | Emergency (ER) | payer OTHER, MEDICAID, SELFPAY ==
[2023-12-04 14:16] VITALS: BP 119/72; PULSE 90; RESP 16; TEMP 37.1; O2SAT 97; BMI 24.7
--- NOTE | 2023-12-04 14:52 | ED_ITS ---
HPI - Fever General Chief Complaint: Fever Stated Complaint: vomitting last 3days / toxic ricky?/flu like symp Time Seen by Provider: 12/04/23 14:15 Source: patient Mode of arrival: Family Vehicle History of Present Illness HPI Narrative: 23-year-old female with no reported past medical history presents by private vehicle from home for 3 days of fever, right ear pain, nausea with vomiting. Associated nonproductive cough. Presented to the emergency department because she was having difficulty keeping water down due to her vomiting. Also reports suprapubic pain, she states she was recently treated with Flagyl after having a tampon in her vagina for an unknown duration. She completed treatment and had no pelvic pain until yesterday. Reports associated white thick white discharge. Related Data Home Medications Medication Instructions Recorded Confirmed escitalopram oxalate 5 mg tablet 5 mg PO DAILY 07/02/19 07/02/19 propranolol 20 mg tablet 10 mg PO ONCE PRN 07/02/19 07/02/19 Previous Rx's Medication Instructions Recorded bupropion HCl 100 mg tablet,12 hr 100 mg PO BID #60 tabs 03/13/17 sustained-release (Wellbutrin SR) ondansetron HCl 4 mg tablet 4 mg PO Q6H PRN nausea and 10/25/19 (Zofran) vomiting #7 tabs ondansetron 4 mg disintegrating 4 mg PO Q8H PRN nausea and 12/04/23 tablet vomiting #30 tabs Allergies Allergy/AdvReac Type Severity Reaction Status Date / Time shellfish derived Allergy Unknown EYES Verified 07/28/20 12:11 [SHELLFISH DERIVED] SWELL, FACE ITCHES lactose Allergy Verified 06/16/22 12:58 Review of Systems Review of Systems Narrative: Otherwise negative Patient History Medical History (Updated 12/04/23 @ 15:57 by Amy Edouard MD) Healthy adult Surgical History History of third molar tooth extraction Family History Brother Age: 28 Mental health problem Mother Age: 47 Broken foot ADHD (attention deficit hyperactivity disorder) Social History Smoking Status: Never smoker Smoking Status: Never smoker alcohol intake frequency: 0-2 drinks per day Substance Use Type: marijuana Exam Initial Vital Signs Initial Vital Signs: Vital Signs Temperature 98.7 F 12/04/23 14:16 Pulse Rate 90 12/04/23 14:16 Respiratory Rate 16 12/04/23 14:16 Blood Pressure 119/72 12/04/23 14:16 Pulse Oximetry 97 12/04/23 14:16 Oxygen Delivery Method Room Air 12/04/23 14:16 Const: Awake, alert, no acute distress, nontoxic appearing Ear: TM normal bilaterally, no auricular tenderness with manipulation bilaterally Cardiac: regular rate, regular rhythm RESP: unlabored, clear bilaterally, no wheezing GI: Atraumatic, soft, isolated suprapubic tenderness to deep palpation MSK: Atraumatic, full range of motion, pulses equal Skin: Warm, Dry, intact, no rashes Neuro: AO x3, CN II-XII grossly intact, moves all extremities Psych: affect normal, mood normal, not suicidal, not homicidal Course Orders Ordered: ED Orders 12/04/23 14:30 Consult to WAITER WAITRESS - Drag Out Man Stat Ictotest Urine Stat UA Complete [Urinalysis and Microscopic] Stat 12/04/23 14:55 CBC Auto Diff [Complete Blood Count AUTO DIFF] Stat CMP [Comprehensive Metabolic Panel] Stat 12/04/23 14:57 Covid-19 + FLU A/B + RSV - PCR Stat Wet Prep Tric BV Veronica Stat Discontinued Medications Sodium Chloride (Normal Saline 0.9%) 1,000 mls @ 1,000 mls/hr IV BOLUS ONE Stop: 12/04/23 15:42 Last Infusion: 12/04/23 16:15 Dose: Infused Documented By: Admin: 12/04/23 15:18 Dose: 1,000 mls/hr Documented By: MALLY Ondansetron HCl (Ondansetron 4 Mg/2 Ml Inj) 4 mg IV NOW ONE Stop: 12/04/23 14:44 Last Admin: 12/04/23 15:17 Dose: 4 mg Documented By: MALLY Vital Signs Vital signs: Vital Signs - 8 hr 12/04/23 14:16 12/04/23 15:24 12/04/23 15:25 Temperature 98.7 F Pulse Rate 90 83 Respiratory Rate 16 Blood Pressure 119/72 109/66 Pulse Oximetry 97 97 Oxygen Delivery Method Room Air 12/04/23 15:25 12/04/23 15:30 12/04/23 15:30 Temperature Pulse Rate 82 80 Respiratory Rate Blood Pressure 112/64 Pulse Oximetry 98 99 Oxygen Delivery Method Room Air 12/04/23 16:00 12/04/23 16:00 12/04/23 16:15 Temperature Pulse Rate 92 H Respiratory Rate Blood Pressure 99/54 L 110/62 Pulse Oximetry 100 Oxygen Delivery Method 12/04/23 16:15 Temperature Pulse Rate 86 Respiratory Rate Blood Pressure Pulse Oximetry 99 Oxygen Delivery Method Room Air MDM - Fever Differential Diagnosis Differential diagnosis: Likely fever of unknown origin, viral infection and influenza Lab Data 12/04/23 14:55 12/04/23 14:55 Labs: Lab Results 12/04/23 12/04/23 12/04/23 Range/Units 14:30 14:55 14:57 WBC 3.2 L (4.5-11.0) X10^3/uL RBC 4.59 (4.0-5.2) X10^6/uL Hgb 13.3 (12.0-16.0) g/dL Hct 40.0 (36-46) % MCV 87.3 (80-100) fL MCH 29.0 (26-34) PG MCHC 33.2 (30-36) % RDW 13.7 (11.6-14.8) % Plt Count 161 (150-400) X10^3/uL Neut % (Auto) 50.1 (50-75) % Lymph % (Auto) 35.7 (25-40) % [place] % (Auto) 13.1 (3-14) % Eos % (Auto) 0.1 L (2-4) % Baso % (Auto) 1.0 (0-2) % Neut # (Auto) 1600 (2154-4116) /uL Lymph # (Auto) 1100 (9293-5245) /uL [place] # (Auto) 400 (0-900) /uL Eos # (Auto) 0 (0-450) /uL Baso # (Auto) 0 (0-100) /uL Sodium 136 L (137-145) mmol/L Potassium 4.1 (3.4-5.1) mmol/L Chloride 103 (98-107) mmol/L Carbon Dioxide 22 (22-32) mmol/L BUN 22 H (7-17) mg/dL Creatinine 0.67 (0.52-1.04) mg/dL Estimated GFR > 60 (>60) mL/min BUN/Creatinine Ratio 32.8 H (6-22) Glucose 63 L (70-100) mg/dL Calcium 9.0 (8.4-10.2) mg/dL Total Bilirubin 0.5 (0.2-1.3) mg/dL AST 47 H (14-36) IU/L ALT 28 (<35) IU/L Alkaline Phosphatase 73 (38-126) U/L Total Protein 7.2 (6.3-8.2) g/dL Albumin 4.2 (3.5-5.0) g/dL Globulin 3.0 (1.7-4.1) g/dL Albumin/Globulin Ratio 1.4 (1.0-2.8) Urine Color Yellow Urine Appearance Clear Urine pH 6.0 (4.5-8.0) Ur Specific [place] >=1.030 H (1.000-1.035) Urine Protein Trace H (Negative) Urine Glucose (UA) Negative (Negative) g/dL Urine Ketones 3+ H (NEGATIVE) Urine Occult Blood Negative (Negative) Urine Nitrate Negative (Negative) Urine Bilirubin 1+ H (NEGATIVE) Ur Bilirubin Confirm TNP Urine Urobilinogen 0.2 (0.2) E.U./dL Ur Leukocyte Esterase Negative (NEGATIVE) Urine RBC 0-1/hpf (0-5/HPF) Urine WBC 0-1/hpf (0-5/HPF) Ur Squamous Epith Cells 5-10 /hpf H (0-5/HPF) Urine Bacteria Few (2-10) H (None) Ur Culture Indicated? Cult not indicated SARS-CoV-2 (PCR) Negative (Negative) Influenza A (RT-PCR) Flu a positive H (NEGATIVE) Influenza B (RT-PCR) Flu b negative (NEGATIVE) RSV (PCR) Negative (Negative) MDM Narrative Medical decision making narrative: Nontoxic appearing patient with 3 days of fever and vomiting. Symptoms occurred after patient treated with Flagyl empirically after a tampon was found during a pelvic exam at the OBGYN office. Patient did report feeling well up until several days after the antibiotics and finished. This is likely coincidental. Patient's abdomen is soft, she is nontoxic, there is no rash, no pelvic pain. We will order labs, if there is no profound leukocytosis then more likely to be viral in etiology. Labs unremarkable. UA with ketones but no infetion. Wet mount negative for infection. She has received IV fluids and antiemetics and reports feeling improved. Viral panel positive for influenza A. Patient is outside of window for Tamiflu. All results discussed at bedside with patient, recommended conservative and supportive treatment at home with Tylenol, Motrin, antiemetics, plenty of fluids. Patient already has scheduled follow up with OBGYN in 1 week for follow up. Discharge Plan Departure Patient Disposition: Home Clinical Impression: Influenza Vomiting Qualifiers: Vomiting type: unspecified Nausea presence: with nausea Qualified Code(s): R 11.2 - Nausea with vomiting, unspecified Instructions: DI for Influenza -- Adult Activity Restrictions/Additional Instructions: Make sure to drink plenty of fluids and get plenty of rest. You tested positive for influenza A. A prescription for Zofran, and antinausea medication, has been sent to the [facility] in [place]. Prescriptions: New ondansetron 4 mg tablet,disintegrating 4 mg PO Q8H PRN (Reason: nausea and vomiting) Qty: 30 0RF No Action propranolol 20 mg tablet 10 mg PO ONCE PRN escitalopram oxalate 5 mg tablet 5 mg PO DAILY bupropion HCl [Wellbutrin SR] 100 MG tablet extended release 12 hr 100 mg PO BID Qty: 60 0RF ondansetron HCl [Zofran] 4 mg tablet 4 mg PO Q6H PRN (Reason: nausea and vomiting) Qty: 7 0RF Referrals: Keely Tsai ARNP [Primary Care Provider] - Stand Alone Forms: Patient Portal/API
[2023-12-04 15:09] LABS: Add Manual Diff / Slide Review NO; Basophils Absolute Auto 0 /uL (0-100); Eosinophils Absolute Auto 0 /uL (0-450); Eosinophils Percent Auto 0.1 % (2-4); Hemoglobin 13.3 g/dL (12.0-16.0); Lymphocytes Absolute Auto 1100 /uL (1100-4500); Lymphocytes Percent Auto 35.7 % (25-40); Mean Corpuscular HGB Conc 33.2 % (30-36); Mean Corpuscular Volume 87.3 fL (80-100); Monocytes Absolute Auto 400 /uL (0-900); Monocytes Percent Auto 13.1 % (3-14); Neutrophils Absolute Auto 1600 /uL (1500-7000); Neutrophils Percent Auto 50.1 % (50-75); Platelet Count 161 X10^3/uL (150-400); Red Blood Cell Count 4.59 X10^6/uL (4.0-5.2); Red Cell Distribution Width 13.7 % (11.6-14.8); White Blood Cell Count 3.2 X10^3/uL (4.5-11.0)
[2023-12-04] MEDS: ONDANSETRON 4 MG/2 ML INJ IV (15:17)
[2023-12-04] MEDS: SODIUM CHLORIDE 0.9% 1,000 ML 1000 ML IV (15:18)
[2023-12-04 15:23] LABS: Alanine Aminotransferase 28 IU/L (<35); Albumin 4.2 g/dL (3.5-5.0); Albumin Globulin Ratio 1.4 (1.0-2.8); Alkaline Phosphatase 73 U/L (38-126); Aspartate Aminotransferase 47 IU/L (14-36); BUN Creatinine Ratio 32.8 (6-22); Bilirubin Total 0.5 mg/dL (0.2-1.3); Blood Urea Nitrogen 22 mg/dL (7-17); Carbon Dioxide 22 mmol/L (22-32); Chloride 103 mmol/L (98-107); Estimated Glomerular Filt Rate > 60 mL/min (>60); Glucose 63 mg/dL (70-100); HEMOLYSIS < 15 (0-50); Potassium 4.1 mmol/L (3.4-5.1); Sodium 136 mmol/L (137-145); Total Protein 7.2 g/dL (6.3-8.2)
[2023-12-04 15:23] LABS: Appearance Urine UA CLEAR; Bilirubin Urine UA 1+ (NEGATIVE); Color Urine UA YELLOW; Glucose Urine UA NEGATIVE (Negative); Ketones Urine UA 3+ (NEGATIVE); Leukocyte Esterase Urine UA NEGATIVE (NEGATIVE); Nitrite Urine UA NEGATIVE (Negative); Occult Blood Urine UA NEGATIVE (Negative); Protein Urine UA TRACE (Negative); Specific Gravity Urine UA >=1.030 (1.000-1.035); Urobilinogen Urine UA 0.2 E.U./dL (0.2)
[2023-12-04 15:24] VITALS: PULSE 83; O2SAT 97
[2023-12-04 15:25] VITALS: BP 109/66; PULSE 82; O2SAT 98
[2023-12-04 15:30] VITALS: BP 112/64; PULSE 80; O2SAT 99
[2023-12-04 15:33] LABS: Bacteria Urine Few (2-10); Culture Indicated Urine Cult Not Indicated; RBC Urine 0-1/HPF (0-5/HPF); Squamous Epithelial Cell Urine 5-10 /HPF (0-5/HPF); WBC Urine 0-1/HPF (0-5/HPF)
--- NOTE | 2023-12-04 15:45 | PC.NURSE ---
A&Ox4. Pt ambulated to bathroom on own accord. Call light within reach. Encouraged to use for needed.
[2023-12-04 15:52] LABS: Influenza A - CEPHEID Flu A POSITIVE (NEGATIVE); Influenza B - CEPHEID Flu B NEGATIVE (NEGATIVE); Respiratory Syncytial Virus Negative (Negative)
[2023-12-04 15:54] LABS: COVID-19 CEPHEID 4-PLEX PCR Negative (Negative)
[2023-12-04 16:00] VITALS: BP 99/54; PULSE 92; O2SAT 100
[2023-12-04 16:15] VITALS: BP 110/62; PULSE 86; O2SAT 99
== END 2023-12-04 16:27 | disposition home or self-care (01) ==
PROVIDERS: Emergency Provider Emergency Medicine; PCP Nurse Practitioner Family
DX: J10.1 Influenza due to other identified influenza virus with other respiratory manifestations (principal); R11.2 Nausea with vomiting, unspecified; Z20.822 Contact with and (suspected) exposure to COVID-19
CPT/HCPCS: 0241U; 36415; 80053; 81001; 85025; 87210; 96361; 96374; 99284; J2405

== ENCOUNTER → 2024-02-11 08:39 | Outpatient (CLI) | payer OTHER, MEDICAID, SELFPAY ==
--- NOTE | 2024-02-11 08:40 | DI.US.S_ITS ---
PROCEDURE: US OB <= 14 WEEKS FETUS INDICATIONS: size and dates OUTSIDE/PRIOR DATING DATA: Last menstrual period (LMP): 11/23/2023. LMP-based estimated date of delivery (FLORIAN): 08/29/2024. First dating scan (date and location): 02/11/2024. Estimated date of delivery (FLORIAN) from first dating scan: 6 weeks 1 day. The calculations are made using the ultrasound FLORIAN of 10/05/2024. TECHNIQUE: Real-time scanning was performed of the fetus and maternal pelvic organs, with image documentation. Endovaginal scanning was also performed to better visualize the fetus and maternal ovaries. COMPARISON: None. FINDINGS: Embryo: [place]-rump length measures 0.4 cm, 6 weeks 1 day Heart rate: 108 beats per minute Maternal organs: Ovaries are unremarkable. IMPRESSION: Early 1st trimester intrauterine with crown-rump length and heartbeat measuring 6 weeks 1 day. We strive to produce accurate, complete, and clear reports of imaging services. To assist us in improving patient care, this report was composed using standard report templates and voice recognition software. Therefore, it may contain abnormal punctuation, insertions and/or omissions. Occasional wrong-word or sound-alike substitutions may occur. Though we review the report and make efforts to correct it, we do recommend that the report be read carefully in proper context to recognize any text inaccuracies. Dictated by: Hector Archibald M.D. on 02/11/2024 at 11:04 Approved by: Hector Archibald M.D. on 02/11/2024 at 11:05
== END ==
PROVIDERS: PCP Nurse Practitioner Family; Referring Provider Registered Nurse; Visit Provider Registered Nurse
DX: Z32.01 Encounter for pregnancy test, result positive (principal); Z36.87 Encounter for antenatal screening for uncertain dates; Z3A.01 Less than 8 weeks gestation of pregnancy
CPT/HCPCS: 76801; 76817; 76830

== ENCOUNTER → 2024-11-05 13:00 | Oncology outpatient (ONC) | payer OTHER, MEDICAID, SELFPAY ==
[2024-10-22 10:08] VITALS: BP 107/64; PULSE 68; RESP 18; TEMP 37; O2SAT 99
[2024-10-22] MEDS: IRON SUCROSE 200 MG in SODIUM CHLORIDE 0.9% 100 ML 171 MG IV (10:15)
--- NOTE | 2024-10-22 11:30 | PC.NURSE ---
Venofer 1st Infusion Patient here for Venofer/Iron Sucrose D#1; first time patient has received IV Iron product, tolerated well no signs of allergic reaction or infusion reaction noted. VSS, see flowsheet for detailed VS documentation.
[2024-10-22 11:47] VITALS: BP 108/58; PULSE 68; RESP 18; TEMP 36.7; O2SAT 99
[2024-10-26 10:04] VITALS: BP 111/57; PULSE 68; RESP 16; TEMP 36.9; O2SAT 97
[2024-10-26] MEDS: IRON SUCROSE 200 MG in SODIUM CHLORIDE 0.9% 100 ML 220 MG IV (10:25)
[2024-10-26 11:26] VITALS: BP 111/61; PULSE 68; RESP 16; TEMP 37.2; O2SAT 97
[2024-10-28 10:04] VITALS: BP 108/60; PULSE 7; RESP 18; TEMP 36.6; O2SAT 98
[2024-10-28] MEDS: IRON SUCROSE 200 MG in SODIUM CHLORIDE 0.9% 100 ML 220 MG IV (10:41)
[2024-10-28 11:52] VITALS: BP 103/59; PULSE 62; RESP 18; TEMP 37.1; O2SAT 99
[2024-11-03 10:10] VITALS: BP 113/59; PULSE 68; RESP 16; TEMP 37; O2SAT 98
[2024-11-03] MEDS: IRON SUCROSE 200 MG in SODIUM CHLORIDE 0.9% 100 ML 220 MG IV (10:12)
[2024-11-03 11:17] VITALS: BP 117/56; PULSE 65; RESP 16; TEMP 36.6; O2SAT 99
[2024-11-05 13:29] VITALS: BP 99/50; PULSE 64; RESP 16; TEMP 36.8; O2SAT 98
[2024-11-05] MEDS: IRON SUCROSE 200 MG in SODIUM CHLORIDE 0.9% 100 ML 220 MG IV (13:32)
[2024-11-05 14:22] VITALS: BP 113/59; PULSE 74; RESP 16; O2SAT 99
== END ==
PROVIDERS: PCP Nurse Practitioner Family; Referring Provider Midwife; Visit Provider Midwife
DX: O99.283 Endocrine, nutritional and metabolic diseases complicating pregnancy, third trimester (principal); E61.1 Iron deficiency; Z3A.29 29 weeks gestation of pregnancy
CPT/HCPCS: 96365; J1756

== ENCOUNTER → 2024-11-20 14:36 | Outpatient (CLI) | payer OTHER, SELFPAY | PROVIDERS: PCP Nurse Practitioner Family; Visit Provider Nurse Practitioner Family | DX: A59.01 Trichomonal vulvovaginitis (principal) | CPT/HCPCS: 87210 ==

== ENCOUNTER → 2025-04-15 13:56 | Outpatient (CLI) | payer OTHER, SELFPAY ==
[2025-04-15 15:21] LABS: Hematocrit 36.5 % (36-46); Hemoglobin 12.6 g/dL (12.0-16.0); Mean Corpuscular HGB Conc 34.5 % (30-36); Mean Corpuscular Hemoglobin 30.2 PG (26-34); Mean Corpuscular Volume 87.3 fL (80-100); Platelet Count 250 X10^3/uL (150-400); Red Blood Cell Count 4.17 X10^6/uL (4.0-5.2); Red Cell Distribution Width 13.3 % (11.6-14.8); White Blood Cell Count 6.1 X10^3/uL (4.5-11.0)
[2025-04-15 15:42] LABS: HEMOLYSIS < 15 (0-50); Iron 109 ug/dL (37-170)
[2025-04-15 15:54] LABS: Percent Iron Saturation 35 % (15-50); Total Iron Binding Capacity 312 ug/dL (265-497); Transferrin 257 mg/dL (206-381)
[2025-04-15 16:00] LABS: Vitamin D 25 Hydroxy (D3) 28.4 ng/mL (30.0-100.0)
[2025-04-15 16:05] LABS: Free T3, Triiodothyronine Free 5.78 pg/mL (2.77-5.27); Free T4, Direct Thyroxine 1.84 ng/dL (0.78-2.19)
[2025-04-15 16:19] LABS: Ferritin 106 ng/mL (6-137)
[2025-04-15 16:20] LABS: TSH w/ Reflex to FT4 < 0.02 uIU/mL (0.47-4.68)
[2025-04-17 07:37] LABS: Thyroid Peroxidase Antibodies 368 IU/mL (0-34)
[2025-04-19 13:09] LABS: Anti Thyroglobulin Antibody 678.3 IU/mL (0.0-0.9)
== END ==
PROVIDERS: PCP Nurse Practitioner Family; Referring Provider Nurse Practitioner Family; Visit Provider Nurse Practitioner Family
DX: R53.83 Other fatigue (principal)
CPT/HCPCS: 36415; 82306; 82728; 83540; 83550; 84439; 84443; 84481; 85027; 86376; 86800

== ENCOUNTER → 2025-04-22 14:16 | Outpatient (CLI) | payer OTHER, SELFPAY ==
[2025-04-22 16:04] LABS: Free T3, Triiodothyronine Free 6.54 pg/mL (2.77-5.27)
[2025-04-22 16:18] LABS: TSH w/ Reflex to FT4 < 0.02 uIU/mL (0.47-4.68)
[2025-04-22 20:30] LABS: Free T4, Direct Thyroxine 2.23 ng/dL (0.78-2.19)
== END ==
PROVIDERS: PCP Nurse Practitioner Family; Referring Provider Nurse Practitioner Family; Visit Provider Nurse Practitioner Family
DX: E05.90 Thyrotoxicosis, unspecified without thyrotoxic crisis or storm (principal)
CPT/HCPCS: 36415; 84439; 84443; 84481

== ENCOUNTER → 2025-05-07 08:32 | Outpatient (CLI) | payer OTHER, MEDICAID, SELFPAY ==
--- NOTE | 2025-05-07 08:34 | DI.US.S_ITS ---
PROCEDURE: US THYROID INDICATIONS: new dx hyperthyroidism TECHNIQUE: Real-time scanning was performed of the thyroid gland, with image documentation. COMPARISON: None. FINDINGS: Thyroid: Right lobe measures 6.3 x 1.6 x 1.8 cm. Left lobe measures 5.5 x 1.9 x 2.0 cm. Isthmus is 0.5 cm thick. Echotexture is homogeneous. Small benign-appearing subcentimeter nodules do not have suspicious features and do not require follow-up IMPRESSION: Unremarkable ultrasound thyroid without suspicious nodules Dictated by: Les Johnston M.D. on 05/07/2025 at 15:39 Approved by: Les Johnston M.D. on 05/07/2025 at 15:43
== END ==
PROVIDERS: PCP Nurse Practitioner Family; Referring Provider Nurse Practitioner Family; Visit Provider Nurse Practitioner Family
DX: E05.90 Thyrotoxicosis, unspecified without thyrotoxic crisis or storm (principal)
CPT/HCPCS: 76536

== ENCOUNTER → 2025-05-28 07:30 | Outpatient (CLI) | payer OTHER, SELFPAY ==
--- NOTE | 2025-05-28 07:31 | DI.US.S_ITS ---
PROCEDURE: US PELVIC COMPLETE INDICATIONS: check iud placement TECHNIQUE: Real-time scanning was performed of the pelvic organs, with image documentation. Additional endovaginal scanning was necessary due to incomplete visualization of the adnexal and endometrial structures by transabdominal scanning. COMPARISON: [facility], , US PELVIC COMPLETE, 02/09/2019, 22:52. FINDINGS: Uterus: Uterus is anteverted and normal in size at 6.5 x 3.5 cm. The myometrium is homogeneous. The endometrium measures 0.2 cm combined thickness. The intrauterine device is seen well seated within the endometrial canal. Ovaries: The right ovary measures 3 x 1.9 x 2.8 cm, with a calculated ovarian volume of 8.4 cc. The left ovary measures 3 x 2.6 x 1.5 cm, with a calculated ovarian volume of 5.9 cc. The ovaries have a normal sonographic appearance. Less than 12 follicles can be seen in each ovary. No adnexal masses are seen. Other: No pathologic free abdominal or pelvic fluid. Small volume pelvic fluid is seen, within normal limits. IMPRESSION: IUD properly position within the endometrial canal. We strive to produce accurate, complete, and clear reports of imaging services. To assist us in improving patient care, this report was composed using standard report templates and voice recognition software. Therefore, it may contain abnormal punctuation, insertions and/or omissions. Occasional wrong-word or sound-alike substitutions may occur. Though we review the report and make efforts to correct it, we do recommend that the report be read carefully in proper context to recognize any text inaccuracies. Dictated by: Germán Castañeda M.D. on 05/28/2025 at 13:40 Approved by: Germán Castañeda M.D. on 05/28/2025 at 13:46
== END ==
LOC: US 07:30
PROVIDERS: PCP Nurse Practitioner Family; Referring Provider Obstetrics & Gynecology; Visit Provider Obstetrics & Gynecology
DX: T83.84XA Pain due to genitourinary prosthetic devices, implants and grafts, initial encounter (principal)
CPT/HCPCS: 76830; 76856

== ENCOUNTER → 2025-06-19 09:23 | Outpatient (CLI) | payer OTHER, SELFPAY ==
[2025-06-19 12:03] LABS: Alanine Aminotransferase 15 IU/L (<35); Albumin 4.6 g/dL (3.5-5.0); Albumin Globulin Ratio 1.7 (1.0-2.8); Alkaline Phosphatase 94 U/L (38-126); Globulin 2.7 g/dL (1.7-4.1); HEMOLYSIS < 15 (0-50); Total Protein 7.3 g/dL (6.3-8.2)
[2025-06-19 12:16] LABS: Free T3, Triiodothyronine Free 2.76 pg/mL (2.77-5.27); Free T4, Direct Thyroxine 0.52 ng/dL (0.78-2.19)
== END ==
PROVIDERS: PCP Nurse Practitioner Family; Referring Provider Nurse Practitioner Family; Visit Provider Nurse Practitioner Family
DX: E05.90 Thyrotoxicosis, unspecified without thyrotoxic crisis or storm (principal)
CPT/HCPCS: 36415; 80076; 84439; 84445; 84481

== ENCOUNTER → 2025-06-25 13:06 | Outpatient (CLI) | payer OTHER, SELFPAY | LOC: LAB 13:06 | PROVIDERS: PCP Nurse Practitioner Family; Visit Provider Nurse Practitioner Family | DX: N76.0 Acute vaginitis (principal) | CPT/HCPCS: 87210 ==

== ENCOUNTER → 2025-07-29 10:16 | Outpatient (CLI) | payer OTHER, SELFPAY ==
[2025-07-29 11:24] LABS: Vitamin D 25 Hydroxy (D3) 44.9 ng/mL (30.0-100.0)
[2025-07-29 11:26] LABS: Free T3, Triiodothyronine Free 3.42 pg/mL (2.77-5.27)
[2025-07-29 11:40] LABS: TSH w/ Reflex to FT4 1.05 uIU/mL (0.47-4.68)
== END ==
PROVIDERS: PCP Nurse Practitioner Family; Referring Provider Nurse Practitioner Family; Visit Provider Nurse Practitioner Family
DX: O90.5 Postpartum thyroiditis (principal); E55.9 Vitamin D deficiency, unspecified
CPT/HCPCS: 36415; 82306; 84443; 84481

== ENCOUNTER → 2025-10-21 11:45 | Outpatient (CLI) | payer OTHER, SELFPAY ==
[2025-10-21 13:01] LABS: TSH w/ Reflex to FT4 0.82 uIU/mL (0.47-4.68)
== END ==
PROVIDERS: PCP Nurse Practitioner Family; Referring Provider Nurse Practitioner Family; Visit Provider Nurse Practitioner Family
DX: Z13.29 Encounter for screening for other suspected endocrine disorder (principal)
CPT/HCPCS: 36415; 84443